=== PATIENT | male | born 1980 | race Caucasian/White ===

== ENCOUNTER → 2016-07-23 | Outpatient (CLI) | payer BC | LOC: EXRD 14:32 | DX: M54.6 Pain in thoracic spine (principal); M47.894 Other spondylosis, thoracic region | CPT/HCPCS: 72070 ==

== ENCOUNTER → 2020-07-05 | Outpatient (CLI) | payer BC, OTHER ==
[~2020-07-05] MED LIST: BREO ELLIPTA 21 EACH INH; HYDROCODON-ACE1 EAC4 PO; HYDROXYZINE HCL10 MG PO; LOPRESSOR50 MG PO; OMEPRAZOLE20 MG PO; PAROXETINE HCL40 MG PO; RELPAX40 MG PO; VENTOLIN HFA 66.7 GM INH
[2020-07-05 15:43] LABS: HEMOGLOBIN 15.1 gm/dl (14.0-17.5); WHITE BLOOD COUNT 7.9 K/UL (4.5-11.0)
[2020-07-05 16:22] LABS: BUN/CREATININE RATIO 16 (0-10)
== END ==
LOC: LAB 14:44
PROVIDERS: Nurse Practitioner Family
DX: I10 Essential (primary) hypertension (principal); E55.9 Vitamin D deficiency, unspecified
CPT/HCPCS: 80053; 80061; 81001; 84439; 84443; 85025

== ENCOUNTER → 2020-08-13 | Outpatient (CLI) | payer BC, OTHER | LOC: US 09:51 | DX: K80.20 Calculus of gallbladder without cholecystitis without obstruction (principal); E80.6 Other disorders of bilirubin metabolism | CPT/HCPCS: 76705 ==

== ENCOUNTER → 2020-08-23 | Day surgery (SDC) | payer BC, OTHER | END | disposition home or self-care (01) | LOC: OR 07:55 | DX: K80.64 Calculus of gallbladder and bile duct with chronic cholecystitis without obstruction (principal); I10 Essential (primary) hypertension; E78.5 Hyperlipidemia, unspecified; J45.909 Unspecified asthma, uncomplicated; G47.33 Obstructive sleep apnea (adult) (pediatric); K21.9 Gastro-esophageal reflux disease without esophagitis; F41.9 Anxiety disorder, unspecified; F32.9 Major depressive disorder, single episode, unspecified; G43.909 Migraine, unspecified, not intractable, without status migrainosus; Z88.6 Allergy status to analgesic agent; Z87.891 Personal history of nicotine dependence | CPT/HCPCS: J0690; J1170; J1885; J2001; J2250; J2405; J2704; J2710; J3010; J7030; J7120 ==